=== PATIENT | female | born 1985 | race Caucasian/White ===

== ENCOUNTER 2017-08-08 14:33 | Emergency (ER) | payer OTHER ==
[2017-08-08 14:51] VITALS: O2SAT 100
[2017-08-08 15:53] LABS: BASO % 0.4 % (0.0-2.0); EOS # 0.1 K/uL (0.0-0.7); EOS % 0.9 % (0.0-4.0); HEMOGLOBIN 12.1 g/dL (11.0-16.0); LYMPH % 20.7 % (20.0-40.0); MEAN CORPUSCULAR HEMOGLOBIN 27.2 pg (27.0-31.0); MEAN CORPUSCULAR HGB CONC 33.6 g/dL (33.0-37.0); MEAN PLATELET VOLUME 8.5 fL (7.2-11.7); MONO # 0.5 K/uL (0.0-0.8); MONO % 4.8 % (0.0-10.0); NEUT # 7.2 K/uL (1.8-7.0); NEUT % 73.2 % (50.0-75.0); RBC 4.46 Mil/uL (3.80-5.20); RED CELL DISTRIBUTION WIDTH 14.5 % (11.5-14.5); WHITE BLOOD COUNT 9.9 K/uL (4.8-10.8)
[2017-08-08 16:06] LABS: ALB/GLOB RATIO 1.1 (1.0-2.1); ALBUMIN 3.8 g/dL (3.5-5.0); ALT/SGPT 27 U/L (9-52); AST/SGOT 24 U/L (14-36); BLOOD UREA NITROGEN 8 mg/dL (7-17); CALCIUM 8.4 mg/dl (8.6-10.4); GFR AFRICAN-AMERICAN > 60; GFR NON-AFRICAN AMERICAN > 60
[2017-08-08] MEDS ORDERED: Sodium Chloride 0.9% 1,000 ML IV STA (16:12)
[2017-08-08] MEDS ORDERED: Sodium Chloride 0.9% 1,000 ML ONE (17:34)
--- NOTE | 2017-08-08 17:48 | US ---
Indication: vaginal bleeding, about 9 weeks Comparison: None available. Technique: Transabdominal pelvic ultrasound. Findings: The uterus measures approximately 12.5 x 6.5 x 9.5 cm. Anteverted. Cervix length measures approximately 3.7 cm. There is a single intrauterine fetus present. 3 mm yolk sac. The gestational sac measures 4.4 cm and is compatible with a gestational age of 10 weeks 0 days. The crown-rump length measures 2.7 cm and is compatible with a gestational age of 9 weeks 3 days. 1.6 x 1.9 x 1.4 cm subchorionic hemorrhage noted inferior to the gestational sac. 3.7 x 0.9 x 2.8 cm subchorionic hemorrhage anterior to the gestational sac. There is heart motion which measured 157 BPM. The right ovary measures 2.5 x 2.3 x 2.9 cm. The left ovary was not visualized. Blood flow was demonstrated to the right ovary. Impression: Live single intrauterine with estimated gestational age 10 weeks 0 days by gestational sac calculation and 9 weeks 3 days by crown-rump length calculation. heart rate 157 bpm. 1.6 x 1.9 x 1.4 cm subchorionic hemorrhage noted inferior to the gestational sac. 3.7 x 0.9 x 2.8 cm subchorionic hemorrhage anterior to the gestational sac. Advise an anomaly screen at 16-18 weeks gestational age The left ovary was not visualized.
[2017-08-08] MEDS ORDERED: ceFAZolin IV 2 gm in Dextrose 2 GM/50 ML BAG IVPB ONE (19:00)
[2017-08-08 19:05] LABS: URINE BACTERIA RARE (<OCC); URINE BILIRUBIN NEGATIVE (NEGATIVE); URINE CLARITY Clear (Clear); URINE COLOR Colorless (YELLOW); URINE GLUCOSE (UA) NORMAL (Normal); URINE LEUKOCYTE ESTERASE NEG Leu/uL (Negative); URINE NITRATE NEGATIVE (NEGATIVE); URINE PROTEIN NEGATIVE (NEGATIVE); URINE UROBILINOGEN NORMAL mg/dL (0.2-1.0)
[2017-08-08 19:18] LABS: URINE BLOOD TRACE (NEGATIVE)
--- NOTE | 2017-08-08 19:26 | C.PDOC ---
History Of Present Illness 31 y/o female A1 presents to the ED c/o vaginal bleeding associated with mild cramps that started last night. The patient states that she is 9 weeks and she was seen by OBGYN Dr. Long today. Dr. Long performed the pelvic exam and sent the patient to the ER for further evaluation. The patient states that vaginal bleeding decreased now.The patient denies fever, abdominal pain, dizziness, and diarrhea. PE: Time Seen by Provider: 08/08/17 14:54 Chief Complaint (Nursing): Female Genitourinary History Per: Patient History/Exam Limitations: no limitations Onset/Duration Of Symptoms: Hrs Current Symptoms Are (Timing): Still Present Quality Of Discomfort: Cramping Associated Symptoms: denies: Diarrhea Additional History Per: Patient Past Medical History Reviewed: Historical Data, Nursing Documentation, Vital Signs Vital Signs: Last Vital Signs Temp 98.7 F 08/08/17 19:59 Pulse 80 08/08/17 19:59 Resp 20 08/08/17 19:59 BP 115/70 08/08/17 19:59 Pulse Ox 100 08/08/17 20:31 Surgical History: No Surg Hx Family History: States: No Known Family Hx - Social History Hx Alcohol Use: No Hx Substance Use: No - Immunization History Hx Tetanus Toxoid Vaccination: No Hx Influenza Vaccination: No Hx Pneumococcal Vaccination: No Review Of Systems Except As Marked, All Systems Reviewed And Found Negative. Constitutional: Negative for: Fever Respiratory: Negative for: Cough, Shortness of Breath Gastrointestinal: Positive for: Abdominal Pain. Negative for: Vomiting, Diarrhea Genitourinary: Negative for: Vaginal Discharge, Vaginal Bleeding Physical Exam - Physical Exam Appears: Non-toxic, No Acute Distress Skin: Warm, Dry Head: Atraumatic, Normacephalic Eye(s): bilateral: Normal Inspection Oral Mucosa: Moist Neck: Supple Chest: Symmetrical Cardiovascular: Rhythm Regular Respiratory: Normal Breath Sounds, No Rales, No Rhonchi Gastrointestinal/Abdominal: Soft, Tenderness (suprapubic), No Guarding, No Rebound Pelvic: Other (deffered) Extremity: Capillary Refill (2<sec. ) Neurological/Psych: Oriented x3, Normal Speech, Normal Cognition Gait: Steady ED Course And Treatment - Laboratory Results Result Diagrams: 08/08/17 15:46 08/08/17 15:46 O2 Sat by Pulse Oximetry: 100 (RA) Progress Note: Labs, and pelvic US preformed and reviewed. Spoke with Dr. Long and he requested to give ANCEF 2gm IV and discharge patient on Augmentin 875mg every [address] Long also wants to see the patient back in one week. All the labs and US reportsm were faxed over to the office of Dr. Long. Medical Decision Making Medical Decision Making: Indication: vaginal bleeding, about 9 weeks Comparison: None available. Technique: Transabdominal pelvic ultrasound. Findings: The uterus measures approximately 12.5 x 6.5 x 9.5 cm. Anteverted. Cervix length measures approximately 3.7 cm. There is a single intrauterine fetus present. 3 mm yolk sac. The gestational sac measures 4.4 cm and is compatible with a gestational age of 10 weeks 0 days. The crown-rump length measures 2.7 cm and is compatible with a gestational age of 9 weeks 3 days. 1.6 x 1.9 x 1.4 cm subchorionic hemorrhage noted inferior to the gestational sac. 3.7 x 0.9 x 2.8 cm subchorionic hemorrhage anterior to the gestational sac. There is heart motion which measured 157 BPM. The right ovary measures 2.5 x 2.3 x 2.9 cm. The left ovary was not visualized. Blood flow was demonstrated to the right ovary. Impression: Live single intrauterine with estimated gestational age 10 weeks 0 days by gestational sac calculation and 9 weeks 3 days by crown-rump length calculation. heart rate 157 bpm. 1.6 x 1.9 x 1.4 cm subchorionic hemorrhage noted inferior to the gestational sac. 3.7 x 0.9 x 2.8 cm subchorionic hemorrhage anterior to the gestational sac. Advise an anomaly screen at 16-18 weeks gestational age The left ovary was not visualized. Disposition - Disposition Referrals: To Long MD [Medical Doctor] - Disposition: HOME/ ROUTINE Disposition Time: 19:23 Condition: STABLE Additional Instructions: Follow up with your OBGYN in 1 week. Return to ED if feel worse Prescriptions: Amoxicillin/Clavulanate [Augmentin 875 MG-125 MG] 1 tab PO BID #14 tab Instructions: Threatened Miscarriage (ED) Forms: [employer] (Croatian) - Clinical Impression Clinical Impression: Threatened in first trimester - PA / SQUEEGEE OPERATOR / Resident Statement MD/DO has examined the patient and agrees with the treatment plan. - Scribe Statement The provider has reviewed the documentation as recorded by the Raineibcharlene Borja
[2017-08-08 19:59] VITALS: BP 115/70; PULSE 80; RESP 20; TEMP 98.7
== END 2017-08-08 20:00 | disposition home or self-care (01) ==
LOC: C.ER 14:33
DX: O20.0 Threatened abortion (principal); Z3A.10 10 weeks gestation of pregnancy
CPT/HCPCS: 76801; 80053; 81001; 84702; 85025; 86850; 86900; 87086; 96361; 96365; 99284; J0690; J7040

== ENCOUNTER 2018-03-07 09:50 | Inpatient (IN) | payer OTHER ==
[2018-03-07] MEDS ORDERED: Lactated Ringer's 1,000 ML IV ONE (10:32)
[2018-03-07] MEDS ORDERED: cefOXitin IV 2 gm in Dextrose 2 GM/50 ML BAG IVPB ONE (10:32)
[2018-03-07 11:26] LABS: BASO % 0.4 % (0.0-2.0); EOS # 0.1 K/uL (0.0-0.7); HEMOGLOBIN 9.6 g/dL (11.0-16.0); LYMPH # 1.9 K/uL (1.0-4.3); LYMPH % 20.9 % (20.0-40.0); MEAN CORPUSCULAR HEMOGLOBIN 26.5 pg (27.0-31.0); MEAN CORPUSCULAR HGB CONC 33.5 g/dL (33.0-37.0); MEAN PLATELET VOLUME 8.5 fL (7.2-11.7); MONO # 0.4 K/uL (0.0-0.8); MONO % 4.7 % (0.0-10.0); NEUT # 6.8 K/uL (1.8-7.0); RBC 3.64 Mil/uL (3.80-5.20); WHITE BLOOD COUNT 9.3 K/uL (4.8-10.8)
[2018-03-07 11:52] LABS: SQUAMOUS EPITHIAL 23 /hpf (0-5); URINE BACTERIA MANY (<OCC); URINE BILIRUBIN NEGATIVE (NEGATIVE); URINE BLOOD NEGATIVE (NEGATIVE); URINE CLARITY Hazy (Clear); URINE COLOR Yellow (YELLOW); URINE GLUCOSE (UA) NORMAL (Normal); URINE LEUKOCYTE ESTERASE NEG Leu/uL (Negative); URINE PROTEIN NEGATIVE (NEGATIVE); URINE UROBILINOGEN NORMAL mg/dL (0.2-1.0)
[2018-03-07] MEDS ORDERED: Sodium Citrate/Citric Acid 15 ml Sol PO ONE (11:56)
[2018-03-07] MEDS ORDERED: Sodium Citrate/Citric Acid 15 ml Sol ONE (11:59)
[2018-03-07 12:14] LABS: BARBITURATES, UR NEGATIVE (NEGATIVE); BENZODIAZEPINES, UR NEGATIVE (NEGATIVE); OPIATES, UR NEGATIVE (NEGATIVE); PHENCYCLIDINE, UR NEGATIVE (NEGATIVE)
[2018-03-07] MEDS ORDERED: ePHEDrine 50 mg/ml Inj ONE (12:38)
[2018-03-07] MEDS ORDERED: Morphine 1 mg/ml preservative-free Inj(Duramorph) ONE (12:38)
--- NOTE | 2018-03-07 12:48 | OBHP ---
Datetime: 03/07/2018 12:47 IP Adm Impression: No Active Labor; Intact Membranes EGA AdmitDate IP: 39.5 IP Indication for Induction: Not Applicable IP Chief Complaint: Scheduled Section Datetime: 03/07/2018 10:40 IP Admit Plan: Admit to unit; Initiate Section protocol Admit Comment, IP Provider: 32 yo female with an IUP at 39 5/7 weeks Previous C/S Sent from Dr. Ambrocio' office for repeat C/S Coourse uneventful, per patient and per [facility] records GBS Negative Rh positive Will Admit and prep for repeat C/S Dr. Ambrocio aware Pelvic Type - PN: Adequate Extremities - PN: Normal Abdomen - PN: Normal Back - PN: Normal Breast - PN: Not Done Lungs - PN: Normal Heart - PN: Normal Thyroid - PN: Normal Neurologic - PN: Normal HEENT - PN: Normal General - PN: Normal FHR - Baseline A Provider: 120 Membranes, Provider: Intact Contraction Comments Provider: Ocassional Vital Signs Provider: Reviewed NICHD Variability Prov Fetus A: Moderate 6-25bpm NICHD Accel Fetus A IP Provider: 10X10 NICHD Decel Fetus A IP Provider: None Dilatation, Provider: 0 Effacement, Provider: 50 Station, Provider: -3 Genitourinary Exam: Normal DTRs - PN: Normal
[2018-03-07] MEDS ORDERED: Oxytocin 20 units in LR 2,000 ML IV ONE (12:59)
[2018-03-07] MEDS ORDERED: Oxytocin 10 Units/ml Inj ONE (12:59)
--- NOTE | 2018-03-07 13:06 | OBADHP ---
Datetime: 03/07/2018 12:47 Admit Comment, IP Provider: 32 yo female with an IUP at 39 5/7 weeks Previous C/S Sent from Dr. Ambrocio' office for repeat C/S Coourse uneventful, per patient and per [facility] records GBS Negative Rh positive Will Admit and prep for repeat C/S Orders done Dr. Ambrocio aware Pelvic Type - PN: Adequate Extremities - PN: Normal Abdomen - PN: Normal Back - PN: Normal Breast - PN: Not Done Lungs - PN: Normal Heart - PN: Normal Thyroid - PN: Normal Neurologic - PN: Normal HEENT - PN: Normal General - PN: Normal Presentation-Admit: Vertex FHR - Baseline A Provider: 120 Membranes, Provider: Intact Gestation - Est Wks by US: 39 5/7 Vital Signs Provider: Reviewed IP Chief Complaint: Scheduled Section NICHD Variability Prov Fetus A: Moderate 6-25bpm NICHD Accel Fetus A IP Provider: 10X10 FHR Category Provider Fetus A: Category I NICHD Decel Fetus A IP Provider: None Dilatation, Provider: 0 Effacement, Provider: 50 Station, Provider: -3 Genitourinary Exam: Normal DTRs - PN: Normal EGA AdmitDate IP: 39.5 IP Adm Impression: No Active Labor; Intact Membranes IP Admit Plan: Admit to unit; Initiate Section protocol Datetime: 03/07/2018 10:40 Contraction Comments Provider: Ocassional
[2018-03-07] MEDS ORDERED: Midazolam 2 MG/2 ML VIAL ONE (13:56)
[2018-03-07] MEDS ORDERED: DiphenhydrAMINE 50 mg/ml Inj IVP PRN (13:56)
[2018-03-07] MEDS: Lactated Ringer's 1,000 ML IV SCH (18:15)
[2018-03-07] MEDS: Simethicone 80 mg Chewtab PO SCH ×3 (18:41→21:37)
[2018-03-08] MEDS: Lactated Ringer's 1,000 ML IV SCH ×2 (03:29→13:16)
[2018-03-08 08:13] LABS: MEAN CELL VOLUME 79.5 fL (81.0-99.0); MEAN CORPUSCULAR HEMOGLOBIN 26.3 pg (27.0-31.0); MEAN CORPUSCULAR HGB CONC 33.1 g/dL (33.0-37.0); MEAN PLATELET VOLUME 8.4 fL (7.2-11.7); RBC 2.64 Mil/uL (3.80-5.20); RED CELL DISTRIBUTION WIDTH 14.2 % (11.5-14.5); WHITE BLOOD COUNT 9.1 K/uL (4.8-10.8)
[2018-03-08 08:21] LABS: ALB/GLOB RATIO 0.9 (1.0-2.1); ALBUMIN 2.1 g/dL (3.5-5.0); ALT/SGPT 29 U/L (9-52); AST/SGOT 27 U/L (14-36); BLOOD UREA NITROGEN 5 mg/dL (7-17); CALCIUM 8.2 mg/dl (8.6-10.4); GFR AFRICAN-AMERICAN > 60; GFR NON-AFRICAN AMERICAN > 60
[2018-03-08 08:22] LABS: HEMOGLOBIN 6.9 g/dL (11.0-16.0)
[2018-03-08] MEDS: Prenatal Multivit/Folic Acid/Iron Tab PO SCH (09:24)
[2018-03-08] MEDS: Simethicone 80 mg Chewtab PO SCH ×4 (09:24→21:52)
[2018-03-08 11:39] LABS: BASO % 0.3 % (0.0-2.0); EOS # 0.1 K/uL (0.0-0.7); EOS % 0.7 % (0.0-4.0); HEMOGLOBIN 7.7 g/dL (11.0-16.0); LYMPH # 1.6 K/uL (1.0-4.3); LYMPH % 14.7 % (20.0-40.0); MEAN CELL VOLUME 80.8 fL (81.0-99.0); MEAN CORPUSCULAR HEMOGLOBIN 26.2 pg (27.0-31.0); MEAN CORPUSCULAR HGB CONC 32.4 g/dL (33.0-37.0); MEAN PLATELET VOLUME 8.6 fL (7.2-11.7); MONO # 0.5 K/uL (0.0-0.8); MONO % 4.2 % (0.0-10.0); NEUT # 8.7 K/uL (1.8-7.0); NEUT % 80.1 % (50.0-75.0); RBC 2.95 Mil/uL (3.80-5.20); RED CELL DISTRIBUTION WIDTH 14.3 % (11.5-14.5); WHITE BLOOD COUNT 10.9 K/uL (4.8-10.8)
[2018-03-08] MEDS: Oxycodone/Acetaminophen 5/325 mg Tab PO PRN (20:50)
[2018-03-09] MEDS: Oxycodone/Acetaminophen 5/325 mg Tab PO PRN ×2 (04:17→22:29)
[2018-03-09 08:48] LABS: HEMOGLOBIN 7.4 g/dL (11.0-16.0); MEAN CELL VOLUME 79.6 fL (81.0-99.0); MEAN CORPUSCULAR HEMOGLOBIN 26.5 pg (27.0-31.0); MEAN CORPUSCULAR HGB CONC 33.3 g/dL (33.0-37.0); RBC 2.78 Mil/uL (3.80-5.20); RED CELL DISTRIBUTION WIDTH 14.2 % (11.5-14.5)
[2018-03-09] MEDS: Simethicone 80 mg Chewtab PO SCH ×4 (09:59→22:26)
[2018-03-09] MEDS: Prenatal Multivit/Folic Acid/Iron Tab PO SCH (10:00)
[2018-03-10 07:47] LABS: HEMOGLOBIN 7.4 g/dL (11.0-16.0); MEAN CELL VOLUME 80.4 fL (81.0-99.0); MEAN CORPUSCULAR HEMOGLOBIN 26.3 pg (27.0-31.0); MEAN CORPUSCULAR HGB CONC 32.7 g/dL (33.0-37.0); RBC 2.83 Mil/uL (3.80-5.20); RED CELL DISTRIBUTION WIDTH 14.7 % (11.5-14.5); WHITE BLOOD COUNT 8.9 K/uL (4.8-10.8)
[2018-03-10] MEDS: Prenatal Multivit/Folic Acid/Iron Tab PO SCH (10:07)
[2018-03-10] MEDS: Simethicone 80 mg Chewtab PO SCH ×2 (10:07→14:22)
--- NOTE | 2018-03-10 11:19 | OBDS ---
DELIVERY PERSONNEL Delivery Doctor: Eliot Ambrocio MD Scrub Nurse: Mariana Robledo OBT Collaborative Teacher: Ludy Romo RN Anesthesiologist: Zarina Leyva MD Steam Table Associate: Nataliia Langford SALES PROMOTION COORDINATOR MATERNAL INFORMATION Delivery Anesthesia: Spinal Medications in Delivery: 20 units of pitocin in 1000 ml, 2gm ancef IVPB Placenta Cultured: No LABOR SUMMARY EDC: 03/09/2018 00:00 No. Babies in Womb: 1 Attempted: No LABOR INFORMATION Group B Beta Strep: Negative STAGES OF LABOR Stage 3 hrs: 0 Stage 3 min: 2 CSECTION DELIVERY Secondary Indication: Repeat Elective CSection Urgency: Elective CSection Incidence: Repeat Labor: No Labor Elective: Elective CSection Incision: Lower Uterine Transverse BABY A INFORMATION Infant Delivery Date/Time: 03/07/2018 13:49 Method of Delivery: Born in Route : No : N/A Forceps: N/A Vacuum Extraction: N/A Shoulder Dystocia : No SHOULDER DYSTOCIA BABY A Delivery Date/Time: 03/07/2018 13:49 PRESENTATION/POSITION BABY A Presentation: Cephalic Cephalic Presentation: Vertex Vertex Position: Right Occipital Anterior Breech Presentation: N/A PLACENTA INFORMATION BABY A Placenta Delivery Time : 03/07/2018 13:51 Placenta Method of Delivery: Manual Removal Placenta Status: Delivered SCORES BABY A Heart Rate 1 min: >100 bpm Resp Effort 1 min: Good Cry Reflex Irritability 1 min: Cough or Sneeze or Pulls Away Muscle Tone 1 min: Active Motion Color 1 min: Body [place], Extremities Blue Resuscitation Effort 1 min: Tactile Stimulation SCORE 1 MIN: 9 Heart Rate 5 min: >100 bpm Resp Effort 5 min: Good Cry Reflex Irritability 5 min: Cough or Sneeze or Pulls Away Muscle Tone 5 min: Active Motion Color 5 min: Body [place], Extremities Blue Resuscitation Effort 5 min: N/A SCORE 5 MIN: 9 INFANT INFORMATION BABY A Gestational Age at Delivery: 39.5 Gestational Status: Term Outcome : Liveborn Infant Condition : Stable Sex: Female IDENTIFICATION/MEDS BABY A ID Band Number: [id number] ID Band Location: Left Leg; Left Arm Sensor Applied: Yes Sensor Number: [id number] Sensor Location : Cord Clamp Vitamin K Given : Aquamephyton 1 mg IM; Left Thigh Erythromycin Given: Given Both Eyes WEIGHT/LENGTH BABY A Infant Birthweight (gms): 3540 Infant Weight (lb): 7 Infant Weight (oz): 13 Length Inches: 19.50 Length cms: 49.5 CORD INFORMATION BABY A No. Cord Vessels: 3 Nuchal Cord : N/A Cord Blood Taken: Yes Infant Suction: None ASSESSMENT BABY A Infant Complications: None Physical Findings at Delivery: Within Normal Limits Infant Respirations: Appears Normal Sewage Screen Operator/ALS Called : Yes Care By: Naty Solitario RN Transferred To: Nursery
--- NOTE | 2018-03-10 11:29 | OBPPN ---
Datetime: 03/08/2018 11:24 PP Pain Prov: Within normal limits PP Breasts Prov: Normal PP Heart Prov: Normal PP Lungs Prov: Normal PP Abdomen/Uterus Prov: Normal PP Lochia Prov: Normal PP Vulva/Perineum Prov: Normal PP CVA Tenderness Prov: Normal PP Extremities Prov: Normal PP C/S Incision Prov: Normal PP Progress Prov: Normal PP Impression Prov: Normal progression PP Plan Prov: Continue present management PP Progress Note Prov: POD #1 No C/O Hb 7.7 from 6.9 VS Stable Abdomen Soft Wound Clean P: Repeat CBC in AM IP PP Procedures: None
--- NOTE | 2018-03-10 11:32 | OBPPN ---
Datetime: 03/10/2018 11:28 PP Breasts Prov: Normal PP Heart Prov: Normal PP Lungs Prov: Normal PP Abdomen/Uterus Prov: Normal PP Vulva/Perineum Prov: Normal PP CVA Tenderness Prov: Normal PP Extremities Prov: Normal PP C/S Incision Prov: Normal PP Progress Prov: Normal PP Impression Prov: Normal progression PP Plan Prov: Continue present management PP Progress Note Prov: POD #3 No C/O VS Stable Abdomen Soft Wound Clean P: Home today with Feosol IP PP Procedures: None
--- NOTE | 2018-03-10 11:34 | OBDCSUM ---
Datetime: 03/10/2018 11:30 Discharged to, Provider: Home Follow up at, Provider: Dr. jazmin Glover Instr Activity: Normal activity Disch Instr Diet: Regular Discharge Instructions, Provider: Routine instructions given Discharge Diagnosis, Provider: Term Delivered Discharge Time: 03/10/2018 11:31 Follow up in weeks, Provider: 4 weeks Disch Referrals: None Contraception discussed, Prov: Yes Disch Activity Restrictions: No sexual activity; Nothing in vagina - [place], tampons, douche Datetime: 03/10/2018 08:18 Discharged to, Provider: Home Follow up at, Provider: Dr. Jazmin Glover Instr Activity: Normal activity Disch Instr Diet: Regular Discharge Time: 03/10/2018 08:18 Follow up in weeks, Provider: 03/21/18 for staple removal Disch Referrals: None Disch Activity Restrictions: No sexual activity; Nothing in vagina - [place], tampons, douche
[2018-03-10 19:22] VITALS: BP 102/63; PULSE 79; RESP 20; TEMP 97.3; O2SAT 98
== END 2018-03-10 14:30 | disposition home or self-care (01) | DRG 766 ==
LOC: C.EROB 09:50 → C.4D 10:27 → C.4M 18:33
PROVIDERS: ADMIT Obstetrics & Gynecology Gynecology; ATTEND Obstetrics & Gynecology Gynecology
PROC: 10D00Z1 Extraction of Products of Conception, Low, Open Approach (ICD-10-PCS; principal; 2018-03-07)
DX: O34.211 Maternal care for low transverse scar from previous cesarean delivery (principal); Z3A.39 39 weeks gestation of pregnancy; Z37.0 Single live birth